=== PATIENT | male | born 1965 | race Hispanic/Latino ===

== ENCOUNTER 2023-02-22 06:01 | Day surgery (SDC) | payer BC ==
[2023-02-19 09:51] VITALS: BP 132/76
[2023-02-19 10:12] LABS: BASOPHILS % (AUTO) 1.3 % (0.0-5.0); EOSINOPHILS % (AUTO) 4.7 % (0.0-8.0); HEMATOCRIT 45.3 % (42-54); LYMPHOCYTES % (AUTO) 34.4 % (21.0-51.0); MEAN CORPUSCULAR HEMOGLOBIN 30.3 pg (27.0-33.0); MEAN CORPUSCULAR HGB CONC 33.6 g/dL (32.0-36.0); MEAN CORPUSCULAR VOLUME 90.4 fL (79-99); MONOCYTES % (AUTO) 6.4 % (3.0-13.0); NEUTROPHILS % (AUTO) 52.7 % (40.0-77.0); PLATELET COUNT (AUTO) 166 K/uL (130-400); RED BLOOD CELL COUNT(AUTO) 5.01 MIL/uL (4.50-6.20); RED CELL DISTRIBUTION WIDTH 13.1 % (11.0-15.5); WHITE BLOOD COUNT (AUTO) 8.5 K/uL (4.8-10.8)
[2023-02-19 10:26] LABS: ALBUMIN 3.9 g/dL (3.5-5.0); BILIRUBIN,DIRECT 0.3 mg/dL (0.0-0.3); CREATININE 0.8 mg/dL (0.5-1.5); POTASSIUM 3.9 mmol/L (3.5-5.1); TOTAL PROTEIN, SERUM 7.3 g/dL (6.0-8.3)
[2023-02-19 10:35] LABS: INR 0.94 (0.85-1.15); PROTHROMBIN TIME 10.3 SEC (9.6-11.6)
[2023-02-19 10:36] LABS: PARTIAL THROMBOPLASTIN TIME 25.7 SEC (26.3-35.5)
[~2023-02-22] VITALS: Ht 170.2 cm; Wt 93.0 kg
[2023-02-22] VITALS (22 sets, daily range): BP systolic 86–130; BP diastolic 51–80
[~2023-02-22 06:01] MED LIST: ASPI-556 PO; ATOR10TA69 PO; HYDR25TA PO; IBUP-2070 PO; LOSA25TA41 PO; METF-444 PO; MORINGA PO; OMEG-148 PO; OMEP40CA21 PO
[2023-02-22] MEDS ORDERED: LIDOCAINE PF 100MG/5ML (2%) SYRINGE 5ML ONE ×2 (06:46→07:20)
[2023-02-22] MEDS ORDERED: SUCCINYLCHOLINE CHLORIDE 20 MG/ML 10 ML VIAL ONE ×3 (06:46→09:07)
[2023-02-22] MEDS ORDERED: PROPOFOL 10 MG/ML 20ML VIAL IV ONE ×2 (06:47→07:20)
[2023-02-22] MEDS ORDERED: 0.9%NACL 1000ML 1,000 ML IV ONE (06:49)
[2023-02-22] MEDS ORDERED: CEFAZOLIN SODIUM 2 GM VIAL ONE (06:49)
[2023-02-22] MEDS ORDERED: DEXAMETHASONE SOD PHOSPHATE 10MG/ML 1ML VIAL ONE (07:20)
[2023-02-22] MEDS ORDERED: GLYCOPYRROLATE 1 MG/5 ML SYRINGE ONE (07:20)
[2023-02-22] MEDS ORDERED: MIDAZOLAM HCL 1 MG/ML 2ML VIAL ONE (07:20)
[2023-02-22] MEDS ORDERED: NEOSTIGMINE 5MG/5ML SYR IV ONE (07:21)
[2023-02-22] MEDS ORDERED: FENTANYL CITRATE PF 50 MCG/1 ML 2ML VIAL ONE (07:21)
[2023-02-22] MEDS ORDERED: ONDANSETRON 4MG INJ ONE (07:21)
[2023-02-22] MEDS ORDERED: ROCURONIUM 10MG/1ML SYR 10 MG/ML ML ONE ×2 (07:21→08:40)
[2023-02-22] MEDS ORDERED: BUPIVACAINE/PF 0.25% 30ML VIAL IJ ONE (07:59)
[2023-02-22] MEDS ORDERED: BUPIVACAINE/PF 0.5% 30ML VIAL ONE (07:59)
[2023-02-22] MEDS ORDERED: KETOROLAC 30MG VIAL (30MG/ML) ONE (08:47)
[2023-02-22] MEDS ORDERED: MEPERIDINE-PF 25 MG/ML SYG ONE (09:08)
[2023-02-22] MEDS ORDERED: DOCU-116 PO (09:15)
[2023-02-22] MEDS ORDERED: TRAM50TA4 PO (09:15)
[2023-02-22] MEDS ORDERED: METH-662 PO (09:15)
== END 2023-02-22 12:25 | disposition home or self-care (01) ==
LOC: DAH 06:01
PROVIDERS: ATTEND Surgery
DX: K43.0 Incisional hernia with obstruction, without gangrene (principal); Z20.822 Contact with and (suspected) exposure to COVID-19; K66.0 Peritoneal adhesions (postprocedural) (postinfection); I10 Essential (primary) hypertension; E11.9 Type 2 diabetes mellitus without complications; F17.200 Nicotine dependence, unspecified, uncomplicated; E78.00 Pure hypercholesterolemia, unspecified; K21.9 Gastro-esophageal reflux disease without esophagitis; Z79.01 Long term (current) use of anticoagulants; Z79.899 Other long term (current) drug therapy; Z98.890 Other specified postprocedural states; Z90.49 Acquired absence of other specified parts of digestive tract; Z83.3 Family history of diabetes mellitus; Z82.49 Family history of ischemic heart disease and other diseases of the circulatory system; Z80.9 Family history of malignant neoplasm, unspecified
CPT/HCPCS: 80076; 80048; 85025; 85610; 85730; 87426; 36415; 49594; 82948 ×2; A4663; J7030 ×3; J3010; J3490 ×3; J1100; J2710; J0330 ×3; J2001 ×2; J2250; J2704 ×2; J2405; J1885; J2175; J0690; C1769 ×2; A4649; A4930 ×2; A4215; A4223; A4222; A4221; A4600